=== PATIENT | male | born 1955 | race Asian ===

== ENCOUNTER 2018-11-25 09:26 | Day surgery (SDC) | payer OTHER ==
[~2018-11-25 09:26] MED LIST: CIPROFLOXACIN 400MG/D5W 200 ML IVPB; PROPOFOL 200 MG INJ; ROCURONIUM 50 MG INJ; SUCCINYLCHOLINE CHLORIDE 100 MG/5 ML SYG IV
[2018-11-25] MEDS ORDERED: LABETALOL HCL 20MG INJ IV (13:30)
[2018-11-25] MEDS ORDERED: ETOMIDATE 20 MG INJ (13:30)
[2018-11-25] MEDS ORDERED: ONDANSETRON 4 MG INJ IV (13:30)
[2018-11-25] MEDS ORDERED: OXYCODONE/ACETAMINOPHEN (5/325) TAB PO (13:30)
[2018-11-25] MEDS ORDERED: HYDROmorphONE 1 MG/5 ML IV SYRINGE IV ×2 (13:30)
[2018-11-25] MEDS ORDERED: LIDOCAINE 2% (SDV) 5 ML INJ (13:30)
[2018-11-25] MEDS ORDERED: CIPROFLOXACIN 400MG/D5W 200 ML ×2 (13:41→13:42)
[2018-11-25] MEDS ORDERED: ONDANSETRON 4 MG INJ (13:46)
[2018-11-25] MEDS ORDERED: SUGAMMADEX SODIUM 200 MG/2 ML VIAL IV (14:12)
[2018-11-25] MEDS: IOHEXOL 300MG/ML 30 ML BTL (14:45)
== END 2018-11-25 16:12 | disposition home or self-care (01) ==
LOC: SDS 09:26
DX: N20.1 Calculus of ureter (principal); I10 Essential (primary) hypertension; N40.0 Benign prostatic hyperplasia without lower urinary tract symptoms
CPT/HCPCS: 52356; 74430; 88300

== ENCOUNTER 2019-05-19 06:57 | Emergency (ER) | payer OTHER ==
[2019-05-19] MEDS: SOD CHLORIDE 0.9% 500 ML IV (07:57)
[2019-05-19 07:58] LABS: ADD MAN DIFF? NO
[2019-05-19] MEDS: KETOROLAC 30 MG INJ IV (07:58)
[2019-05-19 08:01] LABS: WHITE BLOOD COUNT 10.9 10^3/ul (4.8-10.8)
[2019-05-19 08:01] LABS: BASOPHIL # 0.1 10^3/ul (0.0-0.1); BASOPHILS % 0.9 % (0.0-2.0); EOSINOPHILS # 0.3 10^3/ul (0.0-0.5); EOSINOPHILS % 2.5 % (0.0-7.0); LYMPHOCYTES # 1.4 10^3/ul (0.8-2.9); LYMPHOCYTES % 12.8 % (15.0-51.0); MEAN CORPUSCULAR HEMOGLOBIN 31.9 pg (29.0-33.0); MEAN CORPUSCULAR HGB CONC 32.6 g/dl (32.0-37.0); MEAN CORPUSCULAR VOLUME 97.9 fl (82.0-101.0); MEAN PLATELET VOLUME 9.5 fl (7.4-10.4); NEUTROPHIL # 8.1 10^3/ul (1.6-7.5); NEUTROPHILS % 73.6 % (39.0-77.0); PLATELET COUNT 216 10^3/UL (140-415); RED CELL DISTRIBUTION WIDTH 13.4 % (11.5-14.5)
[2019-05-19 08:21] LABS: ALANINE AMINOTRANSFERASE 29 IU/L (13-69); ALBUMIN/GLOBULIN RATIO 1.05; ALKALINE PHOSPHATASE 82 IU/L (42-121); ANION GAP 9 (5-13); ASPARTATE AMINO TRANSFERASE 27 IU/L (15-46); BLOOD UREA NITROGEN 28 mg/dl (7-20); CALCIUM 9.4 mg/dl (8.4-10.2); CARBON DIOXIDE 23 mmol/L (21-31); CHLORIDE 107 mmol/L (97-110); CREATININE 2.32 mg/dl (0.61-1.24); Estimated GFR 29 mL/min (>60); GLUCOSE 112 mg/dl (70-220); LIPASE 477 U/L (23-300); POTASSIUM 4.9 mmol/L (3.5-5.1); SODIUM 139 mmol/L (135-144); TOTAL PROTEIN 7.8 g/dl (6.1-8.1)
[2019-05-19 08:35] LABS: ADD UMIC YES; UR ASCORBIC ACID NEGATIVE (NEGATIVE); UR BACTERIA FEW /HPF (NONE SEEN); UR BILIRUBIN (Dip) NEGATIVE (NEGATIVE); UR BLOOD (Dip) 2+ mg/dL (NEGATIVE); UR CLARITY TURBID (CLEAR); UR COLOR YELLOW (YELLOW); UR GLUCOSE (Dip) NEGATIVE (NEGATIVE); UR KETONES (Dip) NEGATIVE (NEGATIVE); UR LEUKOCYTE ESTERASE (Dip) 2+ Leu/ul (NEGATIVE); UR NITRITE (Dip) NEGATIVE (NEGATIVE); UR RBC > 182 /HPF (0-5); UR SQUAMOUS EPITHELIAL CELL FEW /HPF (FEW); UR TOTAL PROTEIN (Dip) 2+ mg/dl (NEGATIVE); UR UROBILINOGEN (Dip) NEGATIVE (NEGATIVE); UR WBC > 182 /HPF (0-5)
== END 2019-05-19 10:05 | disposition home or self-care (01) ==
LOC: E/R 06:57
DX: R10.12 Left upper quadrant pain (principal); I10 Essential (primary) hypertension
CPT/HCPCS: 36415; 76775; 80053; 81001; 83690; 85025; 96361; 96374; 99285-25

== ENCOUNTER 2019-05-21 23:04 | Inpatient (IN) | payer OTHER ==
[2019-05-21 23:33] LABS: ADD MAN DIFF? NO
[2019-05-21 23:35] LABS: BASOPHILS % 0.2 % (0.0-2.0); HEMATOCRIT 39.6 % (42.0-52.0); HEMOGLOBIN 13.8 g/dl (14.0-18.0); LYMPHOCYTES # 0.9 10^3/ul (0.8-2.9); LYMPHOCYTES % 6.1 % (15.0-51.0); MEAN CORPUSCULAR HEMOGLOBIN 31.9 pg (29.0-33.0); MEAN CORPUSCULAR HGB CONC 34.8 g/dl (32.0-37.0); MEAN CORPUSCULAR VOLUME 91.7 fl (82.0-101.0); MEAN PLATELET VOLUME 9.5 fl (7.4-10.4); MONOCYTE # 1.3 10^3/ul (0.3-0.9); MONOCYTES % 9.1 % (0.0-11.0); NEUTROPHIL # 12.1 10^3/ul (1.6-7.5); PLATELET COUNT 142 10^3/UL (140-415); RED BLOOD COUNT 4.32 10^6/ul (4.70-6.10); RED CELL DISTRIBUTION WIDTH 13.4 % (11.5-14.5)
[2019-05-21 23:35] LABS: WHITE BLOOD COUNT 14.4 10^3/ul (4.8-10.8)
[2019-05-21 23:56] LABS: ALANINE AMINOTRANSFERASE 30 IU/L (13-69); ALBUMIN 3.2 g/dl (3.3-4.9); ALBUMIN/GLOBULIN RATIO 0.88; ALKALINE PHOSPHATASE 76 IU/L (42-121); ANION GAP 15 (5-13); ASPARTATE AMINO TRANSFERASE 30 IU/L (15-46); BILIRUBIN,INDIRECT 0.7 mg/dl (0-1.1); BILIRUBIN,TOTAL 0.7 mg/dl (0.2-1.3); BLOOD UREA NITROGEN 92 mg/dl (7-20); CALCIUM 8.4 mg/dl (8.4-10.2); CARBON DIOXIDE 15 mmol/L (21-31); CHLORIDE 99 mmol/L (97-110); CREATININE 12.21 mg/dl (0.61-1.24); Estimated GFR 4 mL/min (>60); GLUCOSE 135 mg/dl (70-220); SODIUM 129 mmol/L (135-144); TOTAL PROTEIN 6.8 g/dl (6.1-8.1)
[2019-05-21 23:57] LABS: INR 1.19; PROTIME 15.2 Sec (11.9-14.9); PT RATIO 1.2
[2019-05-21 23:58] LABS: PARTIAL THROMBOPLASTIN TIME 32.5 Sec (23.0-35.0)
[2019-05-22 01:16] LABS: ADD UMIC YES; UR ASCORBIC ACID NEGATIVE (NEGATIVE); UR BACTERIA FEW /HPF (NONE SEEN); UR BILIRUBIN (Dip) NEGATIVE (NEGATIVE); UR BLOOD (Dip) 3+ mg/dL (NEGATIVE); UR CLARITY TURBID (CLEAR); UR COLOR YELLOW (YELLOW); UR GLUCOSE (Dip) NEGATIVE (NEGATIVE); UR KETONES (Dip) NEGATIVE (NEGATIVE); UR LEUKOCYTE ESTERASE (Dip) 3+ Leu/ul (NEGATIVE); UR NITRITE (Dip) NEGATIVE (NEGATIVE); UR RBC 113 /HPF (0-5); UR SPECIFIC GRAVITY (Dip) 1.009 (1.003-1.030); UR TOTAL PROTEIN (Dip) 2+ mg/dl (NEGATIVE); UR UROBILINOGEN (Dip) NEGATIVE (NEGATIVE); UR WBC > 182 /HPF (0-5)
[2019-05-22] MEDS: CEFTRIAXONE 1 GM/50 ML (PMX) 50 ML IVPB ×2 (02:14→02:53)
[2019-05-22] MEDS ORDERED: NACL 0.9% 3 ML SYG IV (02:30)
[2019-05-22] MEDS ORDERED: HYDROmorphONE 0.5 MG/0.5 ML SYG IV (02:30)
[2019-05-22] MEDS ORDERED: DOCUSATE SODIUM 100 MG CAP PO (02:30)
[2019-05-22] MEDS ORDERED: BISACODYL (EC) 5 MG TAB PO (02:30)
[2019-05-22] MEDS ORDERED: ONDANSETRON 4 MG INJ IV ×3 (02:30→08:00)
[2019-05-22] MEDS ORDERED: ACETAMINOPHEN 325 MG TAB PO (02:30)
[2019-05-22] MEDS: TAMSULOSIN (SR) 0.4 MG CAP PO ×3 (02:53→21:13)
[2019-05-22 03:35] LABS: LACTIC ACID 1.4 mmol/L (0.5-2.0)
[2019-05-22] MEDS ORDERED: hydrALAzine 20 MG INJ IV ×2 (04:00→11:30)
[2019-05-22 05:32] LABS: ADD MAN DIFF? NO
[2019-05-22 05:37] LABS: WHITE BLOOD COUNT 13.9 10^3/ul (4.8-10.8)
[2019-05-22 05:37] LABS: ABNORMAL IP MESSAGE 1; BASOPHILS % 0.2 % (0.0-2.0); EOSINOPHILS % 0.1 % (0.0-7.0); HEMATOCRIT 39.1 % (42.0-52.0); HEMOGLOBIN 13.5 g/dl (14.0-18.0); LYMPHOCYTES # 0.6 10^3/ul (0.8-2.9); LYMPHOCYTES % 4.1 % (15.0-51.0); MEAN CORPUSCULAR HEMOGLOBIN 31.1 pg (29.0-33.0); MEAN CORPUSCULAR HGB CONC 34.5 g/dl (32.0-37.0); MEAN CORPUSCULAR VOLUME 90.1 fl (82.0-101.0); MEAN PLATELET VOLUME 10.2 fl (7.4-10.4); MONOCYTE # 1.7 10^3/ul (0.3-0.9); MONOCYTES % 12.4 % (0.0-11.0); NEUTROPHIL # 11.5 10^3/ul (1.6-7.5); NEUTROPHILS % 82.6 % (39.0-77.0); PLATELET COUNT 144 10^3/UL (140-415); POSITIVE DIFF @See below; RED BLOOD COUNT 4.34 10^6/ul (4.70-6.10); RED CELL DISTRIBUTION WIDTH 13.3 % (11.5-14.5)
[2019-05-22 05:54] LABS: ANION GAP 17 (5-13); BLOOD UREA NITROGEN 97 mg/dl (7-20); CALCIUM 8.4 mg/dl (8.4-10.2); CARBON DIOXIDE 13 mmol/L (21-31); CHLORIDE 99 mmol/L (97-110); CREATININE 12.75 mg/dl (0.61-1.24); Estimated GFR 4 mL/min (>60); GLUCOSE 114 mg/dl (70-220); POTASSIUM 4.9 mmol/L (3.5-5.1); SODIUM 129 mmol/L (135-144)
[2019-05-22 07:20] LABS: OCCULT BLOOD STOOL POSITIVE (NEGATIVE)
[2019-05-22] MEDS ORDERED: PROPOFOL 20 ML (07:30)
[2019-05-22] MEDS ORDERED: LIDOCAINE 2% (SDV) 5 ML INJ (07:30)
[2019-05-22] MEDS ORDERED: METOCLOPRAMIDE 10 MG INJ (07:31)
[2019-05-22] MEDS ORDERED: ONDANSETRON 4 MG INJ (07:31)
[2019-05-22] MEDS ORDERED: IOHEXOL 300MG/ML 30 ML BTL (07:33)
[2019-05-22] MEDS ORDERED: FENTAnyl 50 MCG/ML VIAL IV (08:00)
[2019-05-22] MEDS ORDERED: PROCHLORPERAZINE 10 MG INJ IV (08:00)
[2019-05-22] MEDS ORDERED: MEPERIDINE 25 MG INJ IV (08:00)
[2019-05-22] MEDS ORDERED: HYDROmorphONE 1 MG/5 ML IV SYRINGE IV (08:00)
[2019-05-22] MEDS ORDERED: EPHEDrine 25 MG/5 ML SYG (08:11)
[2019-05-22] MEDS: IOHEXOL 300MG/ML 30 ML BTL IV (08:21)
[2019-05-22 09:46] LABS: PARTIAL THROMBOPLASTIN TIME 33.1 Sec (23.0-35.0)
[2019-05-22 09:49] LABS: PROTIME 15.3 Sec (11.9-14.9); PT RATIO 1.2
[2019-05-22] MEDS: SOD CHLORIDE 0.9% 1,000 ML IV ×4 (10:11→18:06)
[2019-05-22] MEDS: NA BICARBONATE 8.4% 50 ML SYG IV (10:19)
[2019-05-22 10:26] LABS: OSMOLALITY 301 mOsm/kg (280-295)
[2019-05-22] MEDS ORDERED: SEVOFLURANE 15 MIN (11:35)
[2019-05-22] MEDS: FENTAnyl 50 MCG/ML VIAL (12:50)
[2019-05-22] MEDS: LIDOCAINE 1% (MDV) 20 ML INJ (12:50)
[2019-05-22] MEDS: IOHEXOL 300MG/ML 150 ML BTL (12:50)
[2019-05-22] MEDS: MIDAZOLAM 1 MG/ML 2 ML INJ (12:50)
[2019-05-22] MEDS: SOD CHLORIDE 0.9% 500 ML (12:50)
[2019-05-22] MEDS: LORAZEPAM 2 MG INJ IV (15:20)
[2019-05-22] MEDS: ACETAMINOPHEN 325 MG TAB PO (15:25)
[2019-05-22 15:27] LABS: ANION GAP 17 (5-13); BLOOD UREA NITROGEN 108 mg/dl (7-20); CALCIUM 8.5 mg/dl (8.4-10.2); CARBON DIOXIDE 14 mmol/L (21-31); CHLORIDE 100 mmol/L (97-110); GLUCOSE 106 mg/dl (70-220); SODIUM 131 mmol/L (135-144)
[2019-05-22] MEDS ORDERED: VANCOMYCIN IV PER PHARMACY XX (15:30)
[2019-05-22 15:34] LABS: Estimated GFR 4 mL/min (>60)
[2019-05-22 15:41] LABS: CREATININE 12.81 mg/dl (0.61-1.24)
[2019-05-22 15:43] LABS: SODIUM,URINE RANDOM 72 mmol/L (30-90)
[2019-05-22 16:09] LABS: OSMOLALITY,URINE 284 mOsm/kg (250-1200)
[2019-05-22] MEDS: VANCOMYCIN HCL 1.75 GM in SOD CHLORIDE 0.9% 500 ML IVPB (17:01)
[2019-05-22 17:31] LABS: LACTIC ACID 2.3 mmol/L (0.5-2.0)
[2019-05-22] MEDS: SUCRALFATE (100 MG/ML) 10ML CUP PO ×2 (17:40→21:13)
[2019-05-22] MEDS: PANTOPRAZOLE 40 MG INJ IV (17:40)
[2019-05-22] MEDS: MEROPENEM 500MG/50 ML (PMX) 50 ML IVPB (21:13)
[2019-05-22] MEDS ORDERED: CEFTRIAXONE 2 GM/50 ML (PMX) 50 ML IVPB (23:00)
[2019-05-23] MEDS: SOD CHLORIDE 0.9% 1,000 ML IV ×3 (01:22→20:42)
[2019-05-23 01:39] LABS: LACTIC ACID 1.6 mmol/L (0.5-2.0)
[2019-05-23 05:47] LABS: ADD MAN DIFF? NO
[2019-05-23 05:56] LABS: ABNORMAL IP MESSAGE 1; BASOPHILS % 0.3 % (0.0-2.0); EOSINOPHILS % 0.1 % (0.0-7.0); HEMATOCRIT 36.9 % (42.0-52.0); HEMOGLOBIN 12.9 g/dl (14.0-18.0); LYMPHOCYTES # 0.7 10^3/ul (0.8-2.9); LYMPHOCYTES % 5.1 % (15.0-51.0); MEAN CORPUSCULAR HEMOGLOBIN 31.4 pg (29.0-33.0); MEAN CORPUSCULAR VOLUME 89.8 fl (82.0-101.0); MEAN PLATELET VOLUME 10.4 fl (7.4-10.4); MONOCYTE # 1.5 10^3/ul (0.3-0.9); MONOCYTES % 11.3 % (0.0-11.0); NEUTROPHIL # 11.3 10^3/ul (1.6-7.5); NEUTROPHILS % 82.6 % (39.0-77.0); PLATELET COUNT 152 10^3/UL (140-415); POSITIVE DIFF @See below; RED BLOOD COUNT 4.11 10^6/ul (4.70-6.10); RED CELL DISTRIBUTION WIDTH 13.8 % (11.5-14.5)
[2019-05-23 05:56] LABS: WHITE BLOOD COUNT 13.7 10^3/ul (4.8-10.8)
[2019-05-23 06:14] LABS: PHOSPHORUS 6.5 mg/dl (2.5-4.9)
[2019-05-23 06:14] LABS: MAGNESIUM 1.6 mg/dl (1.7-2.5)
[2019-05-23 06:17] LABS: LACTIC ACID 1.4 mmol/L (0.5-2.0)
[2019-05-23 06:20] LABS: ANION GAP 16 (5-13); BLOOD UREA NITROGEN 109 mg/dl (7-20); CARBON DIOXIDE 14 mmol/L (21-31); CHLORIDE 103 mmol/L (97-110); GLUCOSE 102 mg/dl (70-220); POTASSIUM 5.2 mmol/L (3.5-5.1); SODIUM 133 mmol/L (135-144)
[2019-05-23] MEDS: PANTOPRAZOLE 40 MG INJ IV ×2 (06:20→17:19)
[2019-05-23 06:26] LABS: Estimated GFR 4 mL/min (>60)
[2019-05-23 06:31] LABS: CREATININE 12.87 mg/dl (0.61-1.24)
[2019-05-23] MEDS: TAMSULOSIN (SR) 0.4 MG CAP PO ×2 (08:10→20:43)
[2019-05-23] MEDS: SUCRALFATE (100 MG/ML) 10ML CUP PO ×4 (08:10→20:42)
[2019-05-23] MEDS: MAGNESIUM SULFATE 2 GM/50 ML 50 ML IVPB (15:36)
[2019-05-23] MEDS: ACETAMINOPHEN 325 MG TAB PO (20:43)
[2019-05-23] MEDS: MEROPENEM 500MG/50 ML (PMX) 50 ML IVPB (20:44)
[2019-05-24] MEDS: PANTOPRAZOLE 40 MG INJ IV ×2 (06:10→17:32)
[2019-05-24 06:28] LABS: ADD MAN DIFF? NO
[2019-05-24 06:31] LABS: ABNORMAL IP MESSAGE 1; BASOPHIL # 0.1 10^3/ul (0.0-0.1); BASOPHILS % 0.5 % (0.0-2.0); EOSINOPHILS # 0.2 10^3/ul (0.0-0.5); EOSINOPHILS % 1.3 % (0.0-7.0); HEMATOCRIT 35.4 % (42.0-52.0); HEMOGLOBIN 12.3 g/dl (14.0-18.0); LYMPHOCYTES # 0.7 10^3/ul (0.8-2.9); LYMPHOCYTES % 5.7 % (15.0-51.0); MEAN CORPUSCULAR HEMOGLOBIN 31.5 pg (29.0-33.0); MEAN CORPUSCULAR HGB CONC 34.7 g/dl (32.0-37.0); MEAN CORPUSCULAR VOLUME 90.5 fl (82.0-101.0); MEAN PLATELET VOLUME 10.2 fl (7.4-10.4); MONOCYTE # 1.8 10^3/ul (0.3-0.9); NEUTROPHIL # 10.1 10^3/ul (1.6-7.5); NEUTROPHILS % 77.4 % (39.0-77.0); PLATELET COUNT 142 10^3/UL (140-415); POSITIVE DIFF @See below; RED BLOOD COUNT 3.91 10^6/ul (4.70-6.10); RED CELL DISTRIBUTION WIDTH 13.8 % (11.5-14.5)
[2019-05-24 07:02] LABS: MAGNESIUM 2.2 mg/dl (1.7-2.5)
[2019-05-24 07:02] LABS: PHOSPHORUS 5.4 mg/dl (2.5-4.9)
[2019-05-24 07:13] LABS: ANION GAP 10 (5-13); BLOOD UREA NITROGEN 94 mg/dl (7-20); CALCIUM 8.3 mg/dl (8.4-10.2); CARBON DIOXIDE 15 mmol/L (21-31); CHLORIDE 110 mmol/L (97-110); CREATININE 9.49 mg/dl (0.61-1.24); Estimated GFR 6 mL/min (>60); GLUCOSE 96 mg/dl (70-220); POTASSIUM 4.7 mmol/L (3.5-5.1); SODIUM 135 mmol/L (135-144)
[2019-05-24] MEDS: TAMSULOSIN (SR) 0.4 MG CAP PO ×2 (09:00→21:25)
[2019-05-24] MEDS: SUCRALFATE (100 MG/ML) 10ML CUP PO ×4 (09:00→21:25)
[2019-05-24] MEDS: SOD CHLORIDE 0.9% 1,000 ML IV (09:06)
[2019-05-24] MEDS: CEFTRIAXONE 1 GM/50 ML (PMX) 50 ML IVPB (17:28)
[2019-05-25] MEDS: SOD CHLORIDE 0.9% 1,000 ML IV ×3 (02:09→14:40)
[2019-05-25] MEDS: PANTOPRAZOLE 40 MG INJ IV ×2 (05:40→18:00)
[2019-05-25 06:08] LABS: ADD MAN DIFF? NO
[2019-05-25 06:36] LABS: ANION GAP 8 (5-13); BASOPHIL # 0.1 10^3/ul (0.0-0.1); BASOPHILS % 0.7 % (0.0-2.0); BLOOD UREA NITROGEN 77 mg/dl (7-20); CALCIUM 8.7 mg/dl (8.4-10.2); CARBON DIOXIDE 16 mmol/L (21-31); CHLORIDE 113 mmol/L (97-110); CREATININE 5.55 mg/dl (0.61-1.24); EOSINOPHILS # 0.3 10^3/ul (0.0-0.5); EOSINOPHILS % 2.5 % (0.0-7.0); Estimated GFR 10 mL/min (>60); GLUCOSE 121 mg/dl (70-220); HEMOGLOBIN 11.9 g/dl (14.0-18.0); LYMPHOCYTES # 0.9 10^3/ul (0.8-2.9); LYMPHOCYTES % 8.5 % (15.0-51.0); MEAN CORPUSCULAR HEMOGLOBIN 31.6 pg (29.0-33.0); MEAN CORPUSCULAR VOLUME 90.2 fl (82.0-101.0); MEAN PLATELET VOLUME 9.9 fl (7.4-10.4); MONOCYTE # 1.5 10^3/ul (0.3-0.9); MONOCYTES % 13.1 % (0.0-11.0); NEUTROPHIL # 7.9 10^3/ul (1.6-7.5); NEUTROPHILS % 71.4 % (39.0-77.0); PLATELET COUNT 189 10^3/UL (140-415); RED BLOOD COUNT 3.77 10^6/ul (4.70-6.10); SODIUM 137 mmol/L (135-144)
[2019-05-25 06:36] LABS: WHITE BLOOD COUNT 11.1 10^3/ul (4.8-10.8)
[2019-05-25 07:02] LABS: MAGNESIUM 1.9 mg/dl (1.7-2.5)
[2019-05-25 07:02] LABS: PHOSPHORUS 4.3 mg/dl (2.5-4.9)
[2019-05-25] MEDS: TAMSULOSIN (SR) 0.4 MG CAP PO ×2 (09:02→21:31)
[2019-05-25] MEDS: SUCRALFATE (100 MG/ML) 10ML CUP PO ×4 (09:02→21:31)
[2019-05-25] MEDS: CEFTRIAXONE 1 GM/50 ML (PMX) 50 ML IVPB (14:34)
[2019-05-26] MEDS: PROPOFOL 40 ML (03:17)
[2019-05-26] MEDS: PANTOPRAZOLE 40 MG INJ IV ×2 (05:59→17:34)
[2019-05-26 06:04] LABS: ANION GAP 8 (5-13); BLOOD UREA NITROGEN 59 mg/dl (7-20); CARBON DIOXIDE 16 mmol/L (21-31); CHLORIDE 115 mmol/L (97-110); CREATININE 3.71 mg/dl (0.61-1.24); Estimated GFR 17 mL/min (>60); GLUCOSE 106 mg/dl (70-220); SODIUM 139 mmol/L (135-144)
[2019-05-26] MEDS: SUCRALFATE (100 MG/ML) 10ML CUP PO ×3 (09:59→17:34)
[2019-05-26] MEDS: TAMSULOSIN (SR) 0.4 MG CAP PO (09:59)
[2019-05-26] MEDS: SOD CHLORIDE 0.9% 1,000 ML IV (15:11)
[2019-05-26] MEDS: CEFTRIAXONE 1 GM/50 ML (PMX) 50 ML IVPB (15:12)
== END 2019-05-26 19:04 | disposition home health service (06) | DRG 659 ==
LOC: E/R 23:04 → PP2 05-22 02:10
PROC: 0T768DZ Dilation of Right Ureter with Intraluminal Device, Via Natural or Artificial Opening Endoscopic (ICD-10-PCS; principal; 2019-05-22 07:30)
PROC: BT14YZZ Fluoroscopy of Kidneys, Ureters and Bladder using Other Contrast (ICD-10-PCS; 2019-05-22 07:30)
PROC: 0DB68ZX Excision of Stomach, Via Natural or Artificial Opening Endoscopic, Diagnostic (ICD-10-PCS; 2019-05-22 07:59)
PROC: 0DB78ZX Excision of Stomach, Pylorus, Via Natural or Artificial Opening Endoscopic, Diagnostic (ICD-10-PCS; 2019-05-22 07:59)
PROC: 0T9130Z Drainage of Left Kidney with Drainage Device, Percutaneous Approach (ICD-10-PCS; 2019-05-22 07:59)
DX: N13.6 Pyonephrosis (principal); K25.4 Chronic or unspecified gastric ulcer with hemorrhage; K26.4 Chronic or unspecified duodenal ulcer with hemorrhage; E87.2 Acidosis; E87.1 Hypo-osmolality and hyponatremia; E87.5 Hyperkalemia; E66.9 Obesity, unspecified; Z68.31 Body mass index [BMI] 31.0-31.9, adult; D64.9 Anemia, unspecified; B96.89 Other specified bacterial agents as the cause of diseases classified elsewhere; I12.9 Hypertensive chronic kidney disease with stage 1 through stage 4 chronic kidney disease, or unspecified chronic kidney disease; N18.9 Chronic kidney disease, unspecified; N17.9 Acute kidney failure, unspecified; I51.7 Cardiomegaly; K80.20 Calculus of gallbladder without cholecystitis without obstruction; K76.0 Fatty (change of) liver, not elsewhere classified; K44.9 Diaphragmatic hernia without obstruction or gangrene
CPT/HCPCS: 36415; 71045; 74176; 74430; 74475; 76942; 78707; 80048; 80053; 81001; 82270; 83605; 83735; 83930; 83935; 84100; 84300; 85025; 85610; 85730; 86850; 86900; 86901; 87040-91; 87086; 87177; 87205; 88305; 88312; 93005; 93306; 99285-25